=== PATIENT | female | born 1965 | race African-American/Black ===

== ENCOUNTER → 2018-04-14 | Outpatient (CLI) | payer BC ==
--- NOTE | 2018-04-14 10:26 | RAD ---
EXAM: Pelvis and right hip, 3 views. HISTORY: Pain. COMPARISON: None. FINDINGS: A frontal view the pelvis and 2 views of the right hip are obtained. There is no fracture, dislocation or subluxation. There is sacralization of the left L5 transverse process resulting in articulation with the underlying sacrum, a normal variant. There are pelvic fluid levels. There is slight subchondral sclerosis involving the pubis symphysis, not clearly within limits to suggest osteitis pubis. IMPRESSION: No acute osseous finding. Electronically signed by: Iris Belcher MD (04/14/2018 10:22 AM) [place] [id number]
== END | disposition home or self-care (01) ==
LOC: RAD 09:55
PROVIDERS: ATTEND Registered Nurse
DX: M25.551 Pain in right hip (principal); M43.26 Fusion of spine, lumbar region
CPT/HCPCS: 73502

== ENCOUNTER → 2019-02-04 | Outpatient (CLI) | payer BC ==
--- NOTE | 2019-02-05 08:31 | RAD ---
EXAM: LEFT HAND 2 VIEWS. HISTORY: Left hand pain. COMPARISON: None. FINDINGS: A small ossicle along the ulnar base of the first proximal phalanx may represent an avulsion fragment of indeterminate age. A donor site is better seen on the frontal projection. Alignment is maintained. Small osteophytes indicate mild osteoarthritis along the first through fourth metacarpophalangeal joints. It is also mild to moderate at the triscaphe greater than first carpometacarpal articulation. A tiny ossicle at the tip of the ulnar styloid is consistent with a chronic avulsion fragment. A chronic healed fracture of the fifth metacarpal is suspected. IMPRESSION: 1. Findings consistent with an avulsion fracture at the ulnar base of the first proximal phalanx. Correlate to exclude a Stener lesion. 2. Mild osteoarthritis as above. Electronically signed by: Coby Braga MD (02/05/2019 8:29 AM) [facility]
== END | disposition home or self-care (01) ==
LOC: PMG 14:57
PROVIDERS: ATTEND Registered Nurse
DX: M19.042 Primary osteoarthritis, left hand (principal); M25.742 Osteophyte, left hand
CPT/HCPCS: 73120